=== PATIENT | female | born 1955 | race Caucasian/White ===

== ENCOUNTER 2022-08-23 17:34 | Emergency (ER) | payer MEDICARE ==
[~2022-08-23 17:34] MED LIST: Iopamidol-370 76% 500 ML 1 ML ONE
[2022-08-23] MEDS ORDERED: Ondansetron PF 4 MG/2 ML Vial ONE (18:51)
[2022-08-23] MEDS ORDERED: Fentanyl 100 MCG/2 ML VIAL ONE (18:51)
[2022-08-23 18:52] LABS: #Eosinphils 0.1 thou/uL (0.0-0.7); #Lymphocytes 0.8 thou/uL (1.20-3.40); #Monocytes 0.7 thou/uL (0.11-0.59); %Basophils 0.2 % (0.0-1.0); %Eosinophils 1.4 % (0.0-10.0); %Lymphocytes 8.7 % (21.0-51.0); %Monocytes 8.4 % (0.0-10.0); %Neutrophils 81.3 % (42.0-75.0); Hemoglobin 11.3 g/dL (12.0-16.0); Mean Corpuscular HGB CONC 31.9 g/dL (32.0-36.0); Mean Corpuscular Hemoglobin 30.2 pg (27.0-31.0); Mean Corpuscular Volume 94.7 fL (78.0-98.0); Mean Platelet Volume 7.5 fL (7.4-10.4); Platelet Count 387 thou/uL (130-400); RBC Distribution Width 12.1 % (11.5-14.5); Red Blood Cell (RBC) Count 3.73 mill/uL (4.20-5.40); White Blood Cell (WBC) Count 8.7 thou/uL (4.8-10.8)
[2022-08-23] MEDS ORDERED: Pantoprazole 40 MG VIAL ONE (18:54)
[2022-08-23 19:09] LABS: ALT (SGPT) 7 U/L (8-55); AST (SGOT) 12 U/L (5-34); Albumin 3.8 g/dL (3.4-4.8); Alkaline Phosphatase 68 U/L (40-110); Bilirubin, Direct 0.2 mg/dL (0.1-0.3); Bilirubin, Total 0.4 mg/dL (0.2-1.2)
[2022-08-23 20:47] LABS: Chloride 100 mmol/L (98-107); Potassium 3.8 mmol/L (3.5-5.1); Sodium 139 mmol/L (136-145)
[2022-08-23 20:48] LABS: Calcium 9.2 mg/dL (7.8-10.44); Glucose 119 mg/dL (80-115)
[2022-08-23 20:50] LABS: Carbon Dioxide 25 mmol/L (23-31)
[2022-08-23 20:52] LABS: BUN (Urea Nitrogen) 19 mg/dL (9.8-20.1); Calc. Creatinine Clearance 0 mL/min (70-130); Estimated GFR 96
[2022-08-23 20:58] LABS: Anion Gap 18 mmol/L (10-20)
[2022-08-23 22:01] LABS: Bilirubin Negative (Negative); Blood, Urine Negative (Negative); Clarity Turbid (Clear); Glucose, Urine (Dipstick) Normal (Negative); Ketone, Urine 10 mg/dL (Negative); Leukocyte Negative Leu/uL (Negative); Nitrite Negative (Negative); Protein, Urine (Dipstick) 20 mg/dL (Neg-Trace); Specific Gravity, Urine 1.023 (1.002-1.036); Urobilinogen Normal mg/dL (Less than 2)
== END 2022-08-23 23:20 | disposition home or self-care (01) ==
LOC: ERS 17:34
DX: K52.9 Noninfective gastroenteritis and colitis, unspecified (principal); Z87.891 Personal history of nicotine dependence; Z85.118 Personal history of other malignant neoplasm of bronchus and lung; Z85.819 Personal history of malignant neoplasm of unspecified site of lip, oral cavity, and pharynx
CPT/HCPCS: 36415; 74177; 80048; 80076; 81003; 83605; 83690; 85025; 93005; 96374; 96375; C9113; J2405; J3010

== ENCOUNTER 2022-08-25 11:25 | Outpatient (CLI) | payer MEDICARE | END 2022-08-25 11:26 | disposition home or self-care (01) | LOC: CT 11:25 | PROVIDERS: ATTEND Radiology Radiation Oncology | DX: C34.11 Malignant neoplasm of upper lobe, right bronchus or lung (principal); N63.10 Unspecified lump in the right breast, unspecified quadrant | CPT/HCPCS: 71260 ==

== ENCOUNTER 2022-10-02 11:28 | Inpatient (IN) | payer MEDICARE ==
[2022-10-02 12:52] LABS: #Lymphocytes 0.5 thou/uL (1.20-3.40); #Monocytes 0.7 thou/uL (0.11-0.59); #Neutrophils 6.7 thou/uL (1.40-6.50); %Basophils 0.4 % (0.0-1.0); %Eosinophils 0.6 % (0.0-10.0); %Lymphocytes 5.9 % (21.0-51.0); %Monocytes 8.6 % (0.0-10.0); %Neutrophils 84.5 % (42.0-75.0); Hemoglobin 4.9 g/dL (12.0-16.0); Mean Corpuscular HGB CONC 31.8 g/dL (32.0-36.0); Mean Corpuscular Volume 91.5 fl (78.0-98.0); Mean Platelet Volume 7.4 fL (7.4-10.4); Platelet Count 392 10x3/uL (130-400); RBC Distribution Width 13.2 % (11.5-14.5); Red Blood Cell (RBC) Count 1.69 mill/uL (4.20-5.40); White Blood Cell (WBC) Count 7.9 10x3/uL (4.8-10.8)
[2022-10-02 13:02] LABS: PTT 30.2 sec (22.9-36.1)
[2022-10-02 13:04] LABS: D-Dimer Test 0.62 *mcg/mL (0.27-0.43)
[2022-10-02 13:09] LABS: ALT (SGPT) 7 U/L (8-55); AST (SGOT) 9 U/L (5-34); Albumin 2.9 g/dL (3.4-4.8); Alkaline Phosphatase 41 U/L (40-110); Anion Gap 11 mmol/L (10-20); BUN (Urea Nitrogen) 48 mg/dL (9.8-20.1); Bilirubin, Total Less than 0.2 mg/dL (0.2-1.2); Calc. Creatinine Clearance 0 mL/min (70-130); Calcium 7.9 mg/dL (7.8-10.44); Carbon Dioxide 25 mmol/L (23-31); Chloride 111 mmol/L (98-107); Estimated GFR 97; Globulin 2.2 g/dL (2.4-3.5); Lipase 27 U/L (8-78); Protein, Total 5.1 g/dL (5.8-8.1); Sodium 143 mmol/L (136-145)
[2022-10-02 13:14] LABS: Glucose 58 mg/dL (80-115)
[2022-10-02 13:22] LABS: Iron 89 ug/dL (50-170); Iron Binding Capacity, Total 263 mcg/dL (265-497)
[2022-10-02] MEDS ORDERED: Iopamidol-370 76% 500 ML 1 ML ONE (13:52)
[2022-10-02] MEDS ORDERED: Pantoprazole 40 MG VIAL ONE (13:54)
[2022-10-02] MEDS ORDERED: Pantoprazole 80 MG in Sodium Chloride 0.9% 100 ML IVP SCH (16:45)
[2022-10-02] MEDS: Dextrose 5 %-0.45 % NaCl 1,000 ML IV SCH (18:09)
[2022-10-02] MEDS ORDERED: Sodium Chloride 0.9% 1,000 ML IV SCH (18:30)
[2022-10-02] MEDS ORDERED: Ondansetron PF 4 MG/2 ML Vial IVP PRN (18:30)
[2022-10-02] MEDS ORDERED: Acetaminophen 325 MG TAB PO PRN (18:30)
[2022-10-02] MEDS ORDERED: Ondansetron ODT 4 MG TAB SL PRN (18:30)
[2022-10-02] MEDS ORDERED: Dextrose 50% Abboject 50 ML SYRINGE SLOW IVP PRN (19:56)
[2022-10-02] MEDS ORDERED: Dextrose 5% in Water 1,000 ML IV PRN (19:56)
[2022-10-02 22:11] LABS: Bilirubin Negative (Negative); Blood, Urine Negative (Negative); Clarity Clear (Clear); Glucose, Urine (Dipstick) 30 mg/dL (Negative); Ketone, Urine Negative (Negative); Leukocyte Negative Leu/uL (Negative); Nitrite Negative (Negative); Protein, Urine (Dipstick) Negative (Neg-Trace); Specific Gravity, Urine 1.032 (1.002-1.036); Urobilinogen Normal mg/dL (Less than 2); pH, Urine 6.5 (5.0-9.0)
[2022-10-03] MEDS: Dextrose 5 %-0.45 % NaCl 1,000 ML IV SCH (03:01)
[2022-10-03 03:32] LABS: Hemoglobin 8.3 g/dL (12.0-16.0)
[2022-10-03 04:03] LABS: ALT (SGPT) 7 U/L (8-55); AST (SGOT) 13 U/L (5-34); Albumin 2.5 g/dL (3.4-4.8); Alkaline Phosphatase 43 U/L (40-110); Anion Gap 9 mmol/L (10-20); BUN (Urea Nitrogen) 21 mg/dL (9.8-20.1); Bilirubin, Total 1.3 mg/dL (0.2-1.2); Calc. Creatinine Clearance 64 mL/min (70-130); Calcium 7.6 mg/dL (7.8-10.44); Carbon Dioxide 25 mmol/L (23-31); Chloride 111 mmol/L (98-107); Estimated GFR 101; Glucose 121 mg/dL (80-115); Potassium 3.6 mmol/L (3.5-5.1); Protein, Total 4.5 g/dL (5.8-8.1); Sodium 141 mmol/L (136-145)
[2022-10-03 06:36] LABS: SARS-CoV-2 NAA Rapid Test Not Detected (NotDetected)
[2022-10-03] MEDS: Pantoprazole 80 MG, Admixture Fee 1 EACH in Sodium Chloride 0.9% 100 ML IVP SCH ×2 (08:22→17:01)
[2022-10-03 10:31] LABS: Hemoglobin 7.4 g/dL (12.0-16.0)
[2022-10-04] MEDS: Pantoprazole 80 MG, Admixture Fee 1 EACH in Sodium Chloride 0.9% 100 ML IVP SCH ×2 (02:30→14:23)
[2022-10-04 06:49] LABS: Hemoglobin 8.4 g/dL (12.0-16.0); Platelet Count 338 10x3/uL (130-400)
[2022-10-04 07:20] LABS: Anion Gap 8 mmol/L (10-20); BUN (Urea Nitrogen) 12 mg/dL (9.8-20.1); Calc. Creatinine Clearance 59 mL/min (70-130); Calcium 7.6 mg/dL (7.8-10.44); Carbon Dioxide 25 mmol/L (23-31); Chloride 108 mmol/L (98-107); Estimated GFR 101; Glucose 93 mg/dL (80-115); Potassium 3.8 mmol/L (3.5-5.1); Sodium 137 mmol/L (136-145)
[2022-10-05 07:17] LABS: Hemoglobin 7.9 g/dL (12.0-16.0); Mean Corpuscular HGB CONC 31.8 g/dL (32.0-36.0); Mean Corpuscular Hemoglobin 28.7 pg (27.0-31.0); Mean Corpuscular Volume 90.3 fl (78.0-98.0); Mean Platelet Volume 7.6 fL (7.4-10.4); Platelet Count 340 10x3/uL (130-400); RBC Distribution Width 22.6 % (11.5-14.5); Red Blood Cell (RBC) Count 2.75 mill/uL (4.20-5.40); White Blood Cell (WBC) Count 6.3 10x3/uL (4.8-10.8)
[2022-10-05 07:18] LABS: #Eosinphils 0.2 thou/uL (0.0-0.7); #Lymphocytes 0.6 thou/uL (1.20-3.40); #Monocytes 0.6 thou/uL (0.11-0.59); %Basophils 0.1 % (0.0-1.0); %Eosinophils 2.4 % (0.0-10.0); %Lymphocytes 9.2 % (21.0-51.0); %Monocytes 9.1 % (0.0-10.0); %Neutrophils 79.2 % (42.0-75.0)
[2022-10-05 07:27] LABS: Anion Gap 9 mmol/L (10-20); BUN (Urea Nitrogen) 10 mg/dL (9.8-20.1); Calc. Creatinine Clearance 54 mL/min (70-130); Calcium 7.8 mg/dL (7.8-10.44); Carbon Dioxide 28 mmol/L (23-31); Chloride 104 mmol/L (98-107); Estimated GFR 99; Glucose 97 mg/dL (80-115); Potassium 3.9 mmol/L (3.5-5.1); Sodium 137 mmol/L (136-145)
[2022-10-05 08:22] LABS: Anisocytosis MODERATE=16-30 cells (100X) (0-5/hpf); MDiff Complete? YES; Platelet Morphology Comment Appears Adequate; Polychromasia MODERATE = 3-4 cells (100X) (0-2/hpf)
[2022-10-05] MEDS ORDERED: FLU VACC QS2022-23(65YR UP)/PF 240 MCG/0.7 ML SYRINGE IM ONE (09:00)
[2022-10-06] MEDS: Pantoprazole 80 MG, Admixture Fee 1 EACH in Sodium Chloride 0.9% 100 ML IVP SCH (02:54)
[2022-10-06 06:53] LABS: #Eosinphils 0.1 thou/uL (0.0-0.7); #Lymphocytes 0.6 thou/uL (1.20-3.40); #Monocytes 0.7 thou/uL (0.11-0.59); #Neutrophils 3.7 thou/uL (1.40-6.50); %Basophils 0.2 % (0.0-1.0); %Eosinophils 1.8 % (0.0-10.0); %Lymphocytes 11.7 % (21.0-51.0); %Monocytes 12.9 % (0.0-10.0); %Neutrophils 73.3 % (42.0-75.0); Hemoglobin 7.7 g/dL (12.0-16.0); Mean Corpuscular HGB CONC 31.8 g/dL (32.0-36.0); Mean Corpuscular Hemoglobin 28.9 pg (27.0-31.0); Mean Corpuscular Volume 90.8 fl (78.0-98.0); Mean Platelet Volume 7.8 fL (7.4-10.4); Platelet Count 336 10x3/uL (130-400); RBC Distribution Width 21.9 % (11.5-14.5); Red Blood Cell (RBC) Count 2.66 mill/uL (4.20-5.40); White Blood Cell (WBC) Count 5.1 10x3/uL (4.8-10.8)
[2022-10-06 07:12] LABS: Anion Gap 8 mmol/L (10-20); BUN (Urea Nitrogen) 10 mg/dL (9.8-20.1); Calc. Creatinine Clearance 56 mL/min (70-130); Carbon Dioxide 29 mmol/L (23-31); Chloride 104 mmol/L (98-107); Estimated GFR 99; Glucose 93 mg/dL (80-115); Sodium 137 mmol/L (136-145)
[2022-10-07 06:26] LABS: #Eosinphils 0.1 thou/uL (0.0-0.7); #Lymphocytes 0.7 thou/uL (1.20-3.40); #Monocytes 0.7 thou/uL (0.11-0.59); #Neutrophils 3.9 thou/uL (1.40-6.50); %Basophils 0.4 % (0.0-1.0); %Eosinophils 2.1 % (0.0-10.0); %Lymphocytes 12.3 % (21.0-51.0); %Monocytes 12.6 % (0.0-10.0); %Neutrophils 72.6 % (42.0-75.0); Hemoglobin 9.7 g/dL (12.0-16.0); Mean Corpuscular HGB CONC 32.6 g/dL (32.0-36.0); Mean Corpuscular Hemoglobin 29.3 pg (27.0-31.0); Mean Corpuscular Volume 89.9 fl (78.0-98.0); Mean Platelet Volume 7.6 fL (7.4-10.4); Platelet Count 331 10x3/uL (130-400); RBC Distribution Width 19.5 % (11.5-14.5); Red Blood Cell (RBC) Count 3.29 mill/uL (4.20-5.40); White Blood Cell (WBC) Count 5.4 10x3/uL (4.8-10.8)
[2022-10-07 06:44] LABS: Anion Gap 10 mmol/L (10-20); BUN (Urea Nitrogen) 10 mg/dL (9.8-20.1); Calc. Creatinine Clearance 52 mL/min (70-130); Calcium 8.3 mg/dL (7.8-10.44); Carbon Dioxide 30 mmol/L (23-31); Chloride 102 mmol/L (98-107); Estimated GFR 99; Glucose 93 mg/dL (80-115); Sodium 138 mmol/L (136-145)
[2022-10-07] MEDS: Midodrine HCl 5 MG TAB PO SCH ×2 (17:16→22:11)
[2022-10-07] MEDS ORDERED: Acetaminophen 650 MG/20.3 ML UDCUP PER TUBE SCH (23:59)
[2022-10-08] MEDS: Pantoprazole 80 MG, Admixture Fee 1 EACH in Sodium Chloride 0.9% 100 ML IVP SCH ×2 (03:41→16:49)
[2022-10-08] MEDS: Sodium Chloride 0.9% 500 ML IV SCH ×2 (04:52→05:01)
[2022-10-08 07:02] LABS: #Eosinphils 0.1 thou/uL (0.0-0.7); #Lymphocytes 0.6 thou/uL (1.20-3.40); #Monocytes 0.9 thou/uL (0.11-0.59); #Neutrophils 5.4 thou/uL (1.40-6.50); %Basophils 0.5 % (0.0-1.0); %Eosinophils 2.1 % (0.0-10.0); %Lymphocytes 9.1 % (21.0-51.0); %Monocytes 12.2 % (0.0-10.0); %Neutrophils 76.1 % (42.0-75.0); Hemoglobin 9.4 g/dL (12.0-16.0); Mean Corpuscular HGB CONC 31.7 g/dL (32.0-36.0); Mean Corpuscular Hemoglobin 28.9 pg (27.0-31.0); Mean Corpuscular Volume 91.2 fl (78.0-98.0); Mean Platelet Volume 7.7 fL (7.4-10.4); Platelet Count 358 10x3/uL (130-400); RBC Distribution Width 19.5 % (11.5-14.5); Red Blood Cell (RBC) Count 3.27 mill/uL (4.20-5.40); White Blood Cell (WBC) Count 7.1 10x3/uL (4.8-10.8)
[2022-10-08 07:19] LABS: Anion Gap 11 mmol/L (10-20); BUN (Urea Nitrogen) 11 mg/dL (9.8-20.1); Calc. Creatinine Clearance 55 mL/min (70-130); Carbon Dioxide 27 mmol/L (23-31); Chloride 103 mmol/L (98-107); Estimated GFR 101; Glucose 93 mg/dL (80-115); Potassium 4.1 mmol/L (3.5-5.1); Sodium 137 mmol/L (136-145)
[2022-10-08] MEDS: Midodrine HCl 5 MG TAB PO SCH ×3 (08:42→22:18)
[2022-10-08 15:48] VITALS: BMI 13.8
[2022-10-09] MEDS: Pantoprazole 80 MG, Admixture Fee 1 EACH in Sodium Chloride 0.9% 100 ML IVP SCH (03:47)
[2022-10-09 07:50] LABS: #Eosinphils 0.1 thou/uL (0.0-0.7); #Lymphocytes 0.6 thou/uL (1.20-3.40); #Neutrophils 5.1 thou/uL (1.40-6.50); %Basophils 0.4 % (0.0-1.0); %Eosinophils 1.7 % (0.0-10.0); %Lymphocytes 8.9 % (21.0-51.0); Hemoglobin 9.3 g/dL (12.0-16.0); Mean Corpuscular HGB CONC 31.5 g/dL (32.0-36.0); Mean Corpuscular Hemoglobin 28.7 pg (27.0-31.0); Mean Corpuscular Volume 91.2 fl (78.0-98.0); Mean Platelet Volume 7.6 fL (7.4-10.4); Platelet Count 391 10x3/uL (130-400); RBC Distribution Width 18.8 % (11.5-14.5); Red Blood Cell (RBC) Count 3.25 mill/uL (4.20-5.40); White Blood Cell (WBC) Count 6.8 10x3/uL (4.8-10.8)
[2022-10-09 08:18] LABS: Anion Gap 13 mmol/L (10-20); BUN (Urea Nitrogen) 10 mg/dL (9.8-20.1); Calc. Creatinine Clearance 52 mL/min (70-130); Calcium 8.2 mg/dL (7.8-10.44); Carbon Dioxide 24 mmol/L (23-31); Chloride 103 mmol/L (98-107); Estimated GFR 99; Glucose 88 mg/dL (80-115); Potassium 4.7 mmol/L (3.5-5.1); Sodium 135 mmol/L (136-145)
[2022-10-09 08:45] VITALS: TEMP 97.5
[2022-10-09] MEDS: Midodrine HCl 5 MG TAB PO SCH ×2 (09:22→14:57)
[2022-10-09 15:17] VITALS: BP 97/56
== END 2022-10-09 15:03 | DRG 378 ==
LOC: ERS 11:28 → CCU 15:07 → T4-A 10-03 16:10
PROVIDERS: ADMIT Hospitalist; ATTEND Hospitalist
PROC: 30233N1 Transfusion of Nonautologous Red Blood Cells into Peripheral Vein, Percutaneous Approach (ICD-10-PCS; principal; 2022-10-02)
DX: K92.1 Melena (principal); Z66 Do not resuscitate; Z20.822 Contact with and (suspected) exposure to COVID-19; D62 Acute posthemorrhagic anemia; C78.01 Secondary malignant neoplasm of right lung; S82.092A Other fracture of left patella, initial encounter for closed fracture; C10.9 Malignant neoplasm of oropharynx, unspecified; R13.12 Dysphagia, oropharyngeal phase; Z53.20 Procedure and treatment not carried out because of patient's decision for unspecified reasons; W18.30XA Fall on same level, unspecified, initial encounter; E16.2 Hypoglycemia, unspecified; I95.9 Hypotension, unspecified; Z28.21 Immunization not carried out because of patient refusal; Z90.49 Acquired absence of other specified parts of digestive tract; Z93.4 Other artificial openings of gastrointestinal tract status; Z82.49 Family history of ischemic heart disease and other diseases of the circulatory system; Z88.5 Allergy status to narcotic agent; Z88.0 Allergy status to penicillin
CPT/HCPCS: 36415; 36416; 36430; 70450; 71275; 80048; 80053; 81003; 82728; 83540; 83550; 83605; 83690; 83735; 84443; 84484; 85014; 85018; 85025; 85049; 85379; 85610; 85730; 86850; 86900; 86901; 87040; 93005; 94760; 96374; 96375; C9113; J3490; J7030; J7042; P9016; Q9967; U0002

== ENCOUNTER 2022-11-15 09:45 | Outpatient (CLI) | payer MEDICARE | END 2022-11-15 09:46 | disposition home or self-care (01) | LOC: BICMAMMO 09:45 | PROVIDERS: ATTEND Radiology Radiation Oncology | DX: N63.0 Unspecified lump in unspecified breast (principal); R92.8 Other abnormal and inconclusive findings on diagnostic imaging of breast | CPT/HCPCS: 76642 ×2; 77066; G0279 ==

== ENCOUNTER 2022-11-21 08:57 | Emergency (ER) | payer MEDICARE ==
[2022-11-21] MEDS ORDERED: GASTROGRAFIN 30 ML BOT ONE (09:42)
== END 2022-11-21 10:52 | disposition home or self-care (01) ==
LOC: ERS 08:57
DX: Z00.00 Encounter for general adult medical examination without abnormal findings (principal)
CPT/HCPCS: 74018; Q9963

== ENCOUNTER 2022-11-22 18:18 | Emergency (ER) | payer MEDICARE ==
[2022-11-23 00:42] LABS: #Eosinphils 0.1 thou/uL (0.0-0.7); #Lymphocytes 0.9 thou/uL (1.20-3.40); #Monocytes 0.6 thou/uL (0.11-0.59); #Neutrophils 6.4 thou/uL (1.40-6.50); %Basophils 0.1 % (0.0-1.0); %Lymphocytes 11.7 % (21.0-51.0); %Monocytes 7.6 % (0.0-10.0); %Neutrophils 79.7 % (42.0-75.0); Hemoglobin 13.1 g/dL (12.0-16.0); Mean Corpuscular HGB CONC 32.8 g/dL (32.0-36.0); Mean Corpuscular Hemoglobin 29.1 pg (27.0-31.0); Mean Corpuscular Volume 88.8 fl (78.0-98.0); Mean Platelet Volume 7.4 fL (7.4-10.4); Platelet Count 402 10x3/uL (130-400); Red Blood Cell (RBC) Count 4.48 mill/uL (4.20-5.40); White Blood Cell (WBC) Count 8.1 10x3/uL (4.8-10.8)
[2022-11-23] MEDS ORDERED: Lidocaine 1% PF 5 ML VIAL ONE (00:59)
[2022-11-23 01:07] LABS: ALT (SGPT) 22 U/L (8-55); AST (SGOT) 20 U/L (5-34); Albumin 4.2 g/dL (3.4-4.8); Alkaline Phosphatase 94 U/L (40-110); Anion Gap 14 mmol/L (10-20); BUN (Urea Nitrogen) 25 mg/dL (9.8-20.1); Bilirubin, Total 0.4 mg/dL (0.2-1.2); Calc. Creatinine Clearance 0 mL/min (70-130); Carbon Dioxide 29 mmol/L (23-31); Chloride 102 mmol/L (98-107); Estimated GFR 96; Glucose 123 mg/dL (80-115); Lipase 30 U/L (8-78); Potassium 3.9 mmol/L (3.5-5.1); Protein, Total 8.2 g/dL (5.8-8.1); Sodium 141 mmol/L (136-145)
[2022-11-23] MEDS ORDERED: GASTROGRAFIN 30 ML BOT ONE (09:20)
== END 2022-11-23 01:44 | disposition home or self-care (01) ==
LOC: ERS 18:18
DX: K94.23 Gastrostomy malfunction (principal); Z87.891 Personal history of nicotine dependence
CPT/HCPCS: 74018; 80053; 83605; 83690; 85025; Q9963

== ENCOUNTER → 2022-11-28 | Day surgery (SDC) | payer MEDICARE | END | disposition home or self-care (01) | LOC: BICULT 12:31 | PROVIDERS: ATTEND Radiology Radiation Oncology | PROC: 0H9V3ZX Drainage of Bilateral Breast, Percutaneous Approach, Diagnostic (ICD-10-PCS; principal; 2022-11-28) | DX: C50.412 Malignant neoplasm of upper-outer quadrant of left female breast (principal); D24.1 Benign neoplasm of right breast; Z17.0 Estrogen receptor positive status [ER+]; Z88.0 Allergy status to penicillin; Z88.5 Allergy status to narcotic agent | CPT/HCPCS: 19083; 19084; 88305; 88341; 88342; 88361 ==

== ENCOUNTER 2022-12-12 11:05 | Emergency (ER) | payer MEDICARE ==
[2022-12-12] MEDS ORDERED: GASTROGRAFIN 30 ML BOT ONE (12:04)
== END 2022-12-12 14:21 | disposition home or self-care (01) ==
LOC: ERS 11:05
DX: K94.23 Gastrostomy malfunction (principal); Z87.891 Personal history of nicotine dependence
CPT/HCPCS: 74018; Q9963

== ENCOUNTER 2022-12-20 09:19 | Outpatient (CLI) | payer MEDICARE ==
[2022-12-20 10:19] LABS: #Eosinphils 0.2 10x3/uL (0.0-0.5); #Monocytes 0.6 10x3/uL (0.0-1.1); #Neutrophils 5.7 10x3/uL (1.5-8.4); %Basophils 0.6 % (0.0-2.0); %Eosinophils 2.1 % (0.0-6.0); %Lymphocytes 10.3 % (18.0-47.0); %Monocytes 8.1 % (0.0-10.0); %Neutrophils 78.6 % (40.0-75.0); Anion Gap 14 mmol/L (10-20); BUN (Urea Nitrogen) 21 mg/dL (9.8-20.1); Calc. Creatinine Clearance 0 mL/min (70-130); Calcium 9.2 mg/dL (7.8-10.44); Carbon Dioxide 30 mmol/L (23-31); Chloride 102 mmol/L (98-107); Estimated GFR 96; Glucose 93 mg/dL (80-115); Hemoglobin 11.2 g/dL (12.0-15.5); Mean Corpuscular HGB CONC 32.3 g/dL (32.0-36.0); Mean Corpuscular Hemoglobin 28.8 pg (27.0-33.0); Mean Corpuscular Volume 89.2 fl (81.6-98.3); Mean Platelet Volume 9.4 fl (7.4-10.4); Platelet Count 406 10x3/uL (150-450); Potassium 4.1 mmol/L (3.5-5.1); Red Blood Cell (RBC) Count 3.89 10x6/uL (3.90-5.03); Sodium 142 mmol/L (136-145); White Blood Cell (WBC) Count 7.2 10x3/uL (3.5-10.5)
== END 2022-12-20 09:20 | disposition home or self-care (01) ==
LOC: LABBT 09:19
PROVIDERS: ATTEND Specialist
DX: Z01.812 Encounter for preprocedural laboratory examination (principal); D05.12 Intraductal carcinoma in situ of left breast
CPT/HCPCS: 80048; 85025

== ENCOUNTER 2023-02-01 08:59 | Outpatient (CLI) | payer MEDICARE | END 2023-02-01 09:00 | disposition home or self-care (01) | LOC: LABBT 08:59 | PROVIDERS: ATTEND Specialist | DX: Z01.818 Encounter for other preprocedural examination (principal); C50.912 Malignant neoplasm of unspecified site of left female breast; C76.0 Malignant neoplasm of head, face and neck | CPT/HCPCS: 71046; 93005; 93010 ==

== ENCOUNTER 2023-02-02 11:23 | Day surgery (SDC) | payer MEDICARE ==
[2023-01-31 16:15] VITALS: BMI 15.8
[2023-02-02] MEDS ORDERED: Ketorolac Tromethamine 30 MG/ML VIAL ONE (12:21)
[2023-02-02] MEDS ORDERED: Acetaminophen 500 MG TAB ONE (12:21)
[2023-02-02] MEDS ORDERED: Propofol 500 MG/50 ML VIAL ONE (12:31)
[2023-02-02] MEDS ORDERED: FENTANYL 50 MCG/ML 1 ML VIAL ONE (14:38)
[2023-02-02] MEDS ORDERED: Midazolam HCl 2 mg/2 ml Vial ONE (14:38)
[2023-02-02] MEDS ORDERED: PROPOFOL 60 ML ONE (14:38)
[2023-02-02] MEDS ORDERED: Bupivacaine/Epinephrine 0.25% 30 ML VIAL ONE (14:45)
[2023-02-02] MEDS ORDERED: Lidocaine 2% PF 5 ML VIAL ONE (14:45)
[2023-02-02] MEDS ORDERED: Famotidine/PF 20 mg/2ml Vial ONE (14:52)
[2023-02-02] MEDS ORDERED: CEFAZOLIN 2 GM VIAL ONE (14:54)
[2023-02-02] MEDS ORDERED: Sodium Chloride 0.9% 100 ML ONE (14:54)
[2023-02-02] MEDS ORDERED: GLYCOPYRROLATE/PF 0.2 MG/ML VIAL ONE (14:59)
[2023-02-02] MEDS ORDERED: Ondansetron PF 4 MG/2 ML Vial ONE (14:59)
== END 2023-02-02 17:09 | disposition home or self-care (01) ==
LOC: SDC 11:23
PROVIDERS: ATTEND Specialist
PROC: 0JH60WZ Insertion of Totally Implantable Vascular Access Device into Chest Subcutaneous Tissue and Fascia, Open Approach (ICD-10-PCS; principal; 2023-02-02)
PROC: 02HV33Z Insertion of Infusion Device into Superior Vena Cava, Percutaneous Approach (ICD-10-PCS; 2023-02-02)
PROC: B518ZZA Fluoroscopy of Superior Vena Cava, Guidance (ICD-10-PCS; 2023-02-02)
DX: C76.0 Malignant neoplasm of head, face and neck (principal); C50.412 Malignant neoplasm of upper-outer quadrant of left female breast; Z87.891 Personal history of nicotine dependence; Z17.0 Estrogen receptor positive status [ER+]; Z79.52 Long term (current) use of systemic steroids; Z79.899 Other long term (current) drug therapy; Z88.0 Allergy status to penicillin; Z88.5 Allergy status to narcotic agent; Z93.1 Gastrostomy status
CPT/HCPCS: 36561; 71045; 82962; J3010; 36416; C1788; J1642; J1885; J2001; J2250; J2405; J2704; J3490; S0028

== ENCOUNTER 2023-04-20 08:45 | Outpatient (CLI) | payer MEDICARE | END 2023-04-20 08:46 | disposition home or self-care (01) | LOC: PET 08:45 | PROVIDERS: ATTEND Internal Medicine Hematology & Oncology | DX: C04.1 Malignant neoplasm of lateral floor of mouth (principal); C34.11 Malignant neoplasm of upper lobe, right bronchus or lung | CPT/HCPCS: 78815; A9552 ==

== ENCOUNTER 2023-05-22 17:57 | Inpatient (IN) | payer MEDICARE ==
[~2023-05-22 17:57] MED LIST changes: -Iopamidol-370 76% 500 ML 1 ML ONE; +Iopamidol-370 76% 500 ML MDV (1 ML CHARGE) ONE
[2023-05-22 18:47] LABS: Hemoglobin 9.2 g/dL (12.0-16.0); Mean Corpuscular HGB CONC 30.3 g/dL (32.0-36.0); Mean Corpuscular Hemoglobin 26.1 pg (27.0-31.0); Mean Corpuscular Volume 86.1 fl (78.0-98.0); Mean Platelet Volume 9.7 fL (7.4-10.4); Platelet Count 451 10x3/uL (130-400); RBC Distribution Width 18.4 % (11.5-14.5); Red Blood Cell (RBC) Count 3.53 mill/uL (4.20-5.40); White Blood Cell (WBC) Count 4.9 10x3/uL (4.8-10.8)
[2023-05-22 18:54] LABS: Delete Auto Diff?? YES; Manual Diff?? YES
[2023-05-22 18:57] LABS: #Neutrophils 4.2 thou/uL (1.40-6.50); %Basophils 0.6 % (0.0-1.0); %Eosinophils 0.4 % (0.0-10.0); %Monocytes 0.6 % (0.0-10.0); %Neutrophils 85.6 % (42.0-75.0)
[2023-05-22 19:13] LABS: ALT (SGPT) 11 U/L (8-55); AST (SGOT) 14 U/L (5-34); Albumin 3.6 g/dL (3.4-4.8); Alkaline Phosphatase 59 U/L (40-110); Anion Gap 15 mmol/L (10-20); BUN (Urea Nitrogen) 26 mg/dL (9.8-20.1); Bilirubin, Total 0.2 mg/dL (0.2-1.2); Calc. Creatinine Clearance 0 mL/min (70-130); Calcium 8.8 mg/dL (7.8-10.44); Carbon Dioxide 28 mmol/L (23-31); Chloride 102 mmol/L (98-107); Estimated GFR 100; Globulin 2.4 g/dL (2.4-3.5); Glucose 108 mg/dL (80-115); Potassium 4.1 mmol/L (3.5-5.1); Sodium 141 mmol/L (136-145)
[2023-05-22 19:47] LABS: Anisocytosis SLIGHT = 6-15 cells HPF (0-5); CellaVision Operator ID LAB.KB; Hypochromia SLIGHT = 6-15 cells HPF (0-5); Polychromasia SLIGHT = 2-3 cells HPF (0-2)
[2023-05-22 19:59] LABS: Lymphocytes 13 % (21-51); Neutrophil 86 % (42-75); Platelet Adequacy Comment Platelets Increased; Total Cell Count 100
[2023-05-22] MEDS ORDERED: Vancomycin 1 GM/200 ML (FROZEN) BAG ONE (20:37)
[2023-05-22] MEDS ORDERED: Clindamycin/D5W 600 mg/50 ml Premix Bag ONE (20:40)
[2023-05-22] MEDS ORDERED: Hydrocodone-Acetamin 15 ML UDCUP ONE (21:54)
[2023-05-22] MEDS ORDERED: Ondansetron PF 4 MG/2 ML Vial IVP PRN (22:31)
[2023-05-23] MEDS: Sodium Chloride 0.9% 1,000 ML IV SCH ×2 (00:12→09:58)
[2023-05-23] MEDS: Hydrocodone-Acetamin 15 ML UDCUP PER TUBE PRN ×4 (03:46→22:00)
[2023-05-23] MEDS: Cefepime 1 GM in Sodium Chloride 0.9% 100 ML IVPB SCH ×2 (05:26→17:06)
[2023-05-23 05:40] LABS: #Neutrophils 2.5 thou/uL (1.40-6.50); %Basophils 1.4 % (0.0-1.0); %Eosinophils 0.3 % (0.0-10.0); %Lymphocytes 10.6 % (21.0-51.0); %Monocytes 1.4 % (0.0-10.0); %Neutrophils 83.9 % (42.0-75.0); Hemoglobin 8.2 g/dL (12.0-16.0); Mean Corpuscular HGB CONC 29.8 g/dL (32.0-36.0); Mean Corpuscular Hemoglobin 25.8 pg (27.0-31.0); Mean Corpuscular Volume 86.5 fl (78.0-98.0); Mean Platelet Volume 9.5 fL (7.4-10.4); Platelet Count 414 10x3/uL (130-400); RBC Distribution Width 18.3 % (11.5-14.5); Red Blood Cell (RBC) Count 3.18 mill/uL (4.20-5.40); White Blood Cell (WBC) Count 2.9 10x3/uL (4.8-10.8)
[2023-05-23 06:01] LABS: Anion Gap 11 mmol/L (10-20); BUN (Urea Nitrogen) 16 mg/dL (9.8-20.1); Calc. Creatinine Clearance 67 mL/min (70-130); Calcium 8.3 mg/dL (7.8-10.44); Carbon Dioxide 29 mmol/L (23-31); Chloride 101 mmol/L (98-107); Estimated GFR 102; Glucose 94 mg/dL (80-115); Sodium 137 mmol/L (136-145)
[2023-05-23] MEDS ORDERED: Famotidine/PF 20 mg/2ml Vial SLOW IVP SCH (09:00)
[2023-05-23 09:43] VITALS: BMI 15.7
[2023-05-23] MEDS: Vancomycin HCl 500 MG in Sodium Chloride 0.9% 100 ML IVPB SCH ×2 (09:54→20:42)
[2023-05-24] MEDS: Sodium Chloride 0.9% 1,000 ML IV SCH ×2 (02:08→15:06)
[2023-05-24] MEDS: Hydrocodone-Acetamin 15 ML UDCUP PER TUBE PRN ×3 (03:33→20:20)
[2023-05-24] MEDS: Cefepime 1 GM in Sodium Chloride 0.9% 100 ML IVPB SCH ×2 (06:25→16:57)
[2023-05-24 07:51] LABS: Hemoglobin 7.8 g/dL (12.0-16.0); Mean Corpuscular HGB CONC 30.1 g/dL (32.0-36.0); Mean Corpuscular Hemoglobin 25.7 pg (27.0-31.0); Mean Corpuscular Volume 85.2 fl (78.0-98.0); Mean Platelet Volume 9.4 fL (7.4-10.4); Platelet Count 387 10x3/uL (130-400); RBC Distribution Width 18.2 % (11.5-14.5); Red Blood Cell (RBC) Count 3.04 mill/uL (4.20-5.40); White Blood Cell (WBC) Count 0.9 10x3/uL (4.8-10.8)
[2023-05-24 07:54] LABS: Delete Auto Diff?? YES; Manual Diff?? YES
[2023-05-24 08:13] LABS: ALT (SGPT) 7 U/L (8-55); AST (SGOT) 9 U/L (5-34); Alkaline Phosphatase 51 U/L (40-110); Anion Gap 9 mmol/L (10-20); BUN (Urea Nitrogen) 8 mg/dL (9.8-20.1); Bilirubin, Total 0.4 mg/dL (0.2-1.2); Calc. Creatinine Clearance 68 mL/min (70-130); Calcium 7.9 mg/dL (7.8-10.44); Carbon Dioxide 28 mmol/L (23-31); Chloride 102 mmol/L (98-107); Estimated GFR 102; Globulin 2.1 g/dL (2.4-3.5); Glucose 96 mg/dL (80-115); Potassium 4.1 mmol/L (3.5-5.1); Protein, Total 5.1 g/dL (5.8-8.1); Sodium 135 mmol/L (136-145)
[2023-05-24] MEDS ORDERED: [UNRECOGNIZED DRUG - OTHER] PER TUBE SCH (09:00)
[2023-05-24 09:08] LABS: Band 11 % (5-11); CellaVision Operator ID LAB.GE; Eosinophils 1 % (0-10); Hypochromia SLIGHT = 6-15 cells HPF (0-5); Large Platelets 11.3 % (0-5); Lymphocytes 24 % (21-51); Monocytes 4 % (0-10); Neutrophil 56 % (42-75); Platelet Adequacy Comment Platelets Normal; Polychromasia SLIGHT = 2-3 cells HPF (0-2); Reactive Lymphocytes 4 % (0-10); Smudge Cells 4.7 %; Total Cell Count 106
[2023-05-24] MEDS: Lansoprazole 15 MG/5 ML (BATCHED)UDCUP PER TUBE SCH (09:16)
[2023-05-24 09:20] LABS: Vancomycin, Trough 6.8 ug/mL
[2023-05-24] MEDS: Vancomycin HCl 500 MG in Sodium Chloride 0.9% 100 ML IVPB SCH (10:11)
[2023-05-24] MEDS: Vancomycin HCl 750 MG in Sodium Chloride 0.9% 250 ML 250 ML IVPB SCH ×2 (10:19→22:23)
[2023-05-24] MEDS: metroNIDAZOLE 500 MG in Premix Bag 1 BAG IVPB SCH ×2 (15:05→23:40)
[2023-05-24] MEDS ORDERED: TBO-Filgrastim 300 MCG/0.5 ML VIAL SC SCH (15:30)
[2023-05-25] MEDS: Hydrocodone-Acetamin 15 ML UDCUP PER TUBE PRN ×3 (01:45→13:24)
[2023-05-25] MEDS: Cefepime 1 GM in Sodium Chloride 0.9% 100 ML IVPB SCH ×2 (05:48→18:13)
[2023-05-25 06:07] LABS: Hemoglobin 7.3 g/dL (12.0-16.0); Mean Corpuscular HGB CONC 30.7 g/dL (32.0-36.0); Mean Corpuscular Hemoglobin 25.9 pg (27.0-31.0); Mean Corpuscular Volume 84.4 fl (78.0-98.0); Mean Platelet Volume 9.9 fL (7.4-10.4); Platelet Count 382 10x3/uL (130-400); RBC Distribution Width 18.1 % (11.5-14.5); Red Blood Cell (RBC) Count 2.82 mill/uL (4.20-5.40); White Blood Cell (WBC) Count 0.6 10x3/uL (4.8-10.8)
[2023-05-25 06:21] LABS: Delete Auto Diff?? YES; Manual Diff?? YES
[2023-05-25] MEDS: metroNIDAZOLE 500 MG in Premix Bag 1 BAG IVPB SCH ×3 (06:40→21:10)
[2023-05-25] MEDS: Sodium Chloride 0.9% 1,000 ML IV SCH ×2 (06:42→16:35)
[2023-05-25 09:30] LABS: Band 5 % (5-11); Lymphocytes 60 % (21-51); Monocytes 10 % (0-10); Neutrophil 25 % (42-75); Nucleated RBC (Manual Ct) 1 % (0); Platelet Adequacy Comment Platelets Normal; Polychromasia SLIGHT = 2-3 cells (100X) (0-2/hpf)
[2023-05-25] MEDS: TBO-Filgrastim 300 MCG/0.5 ML VIAL SC SCH (09:34)
[2023-05-25] MEDS: Lansoprazole 15 MG/5 ML (BATCHED)UDCUP PER TUBE SCH (09:34)
[2023-05-25] MEDS: Vancomycin HCl 750 MG in Sodium Chloride 0.9% 250 ML 250 ML IVPB SCH (09:38)
[2023-05-25] MEDS ORDERED: Hydrocodone-Acetamin 15 ML UDCUP PO PRN ×2 (16:25)
[2023-05-25] MEDS ORDERED: Hydrocodone-Acetamin 15 ML UDCUP PO SCH (16:30)
[2023-05-25] MEDS ORDERED: Hydrocodone-Acetamin 15 ML UDCUP PER TUBE PRN (16:45)
[2023-05-25] MEDS ORDERED: Hydrocodone-Acetamin 15 ML UDCUP PER TUBE SCH (16:45)
[2023-05-26] LABS: Vancomycin, Trough 11.3 ug/mL
[2023-05-26] MEDS: Vancomycin HCl 750 MG in Sodium Chloride 0.9% 250 ML 250 ML IVPB SCH ×3 (00:32→13:25)
[2023-05-26] MEDS: metroNIDAZOLE 500 MG in Premix Bag 1 BAG IVPB SCH (04:46)
[2023-05-26] MEDS: Sodium Chloride 0.9% 1,000 ML IV SCH (04:46)
[2023-05-26] MEDS: Cefepime 1 GM in Sodium Chloride 0.9% 100 ML IVPB SCH (04:46)
[2023-05-26 05:00] LABS: Hemoglobin 7.1 g/dL (12.0-16.0); Manual Diff?? YES; Mean Corpuscular HGB CONC 31.3 g/dL (32.0-36.0); Mean Corpuscular Hemoglobin 26.4 pg (27.0-31.0); Mean Corpuscular Volume 84.4 fl (78.0-98.0); Mean Platelet Volume 9.7 fL (7.4-10.4); Platelet Count 394 10x3/uL (130-400); RBC Distribution Width 18.3 % (11.5-14.5); Red Blood Cell (RBC) Count 2.69 mill/uL (4.20-5.40); White Blood Cell (WBC) Count 0.9 10x3/uL (4.8-10.8)
[2023-05-26 05:03] LABS: Delete Auto Diff?? YES
[2023-05-26 05:32] LABS: Band 7 % (5-11); CellaVision Operator ID LAB.CLH1; Hypochromia MODERATE=16-30 cells HPF (0-5); Large Platelets 35.5 % (0-5); Lymphocytes 48 % (21-51); Monocytes 42 % (0-10); Platelet Adequacy Comment Platelets Normal; Polychromasia MODERATE = 3-4 cells HPF (0-2)
[2023-05-26] MEDS: Hydrocodone-Acetamin 15 ML UDCUP PER TUBE PRN ×4 (07:34→22:41)
[2023-05-26] MEDS: TBO-Filgrastim 300 MCG/0.5 ML VIAL SC SCH (08:05)
[2023-05-26] MEDS: Lansoprazole 15 MG/5 ML (BATCHED)UDCUP PER TUBE SCH (08:06)
[2023-05-26] MEDS ORDERED: Loperamide HCl 2 MG CAP PO PRN (14:58)
[2023-05-26] MEDS ORDERED: Loperamide HCl 1 MG/7.5 ML UDCUP PO PRN (15:02)
[2023-05-27] MEDS: Hydrocodone-Acetamin 15 ML UDCUP PER TUBE PRN ×2 (05:06→10:44)
[2023-05-27 05:43] LABS: #Basophils 0.1 thou/uL (0.0-0.2); #Monocytes 2.7 thou/uL (0.11-0.59); #Neutrophils 3.4 thou/uL (1.40-6.50); %Basophils 1.3 % (0.0-1.0); %Eosinophils 0.3 % (0.0-10.0); %Lymphocytes 10.7 % (21.0-51.0); %Monocytes 38.2 % (0.0-10.0); %Neutrophils 47.3 % (42.0-75.0); Mean Corpuscular HGB CONC 31.3 g/dL (32.0-36.0); Mean Corpuscular Hemoglobin 26.3 pg (27.0-31.0); Mean Corpuscular Volume 83.8 fl (78.0-98.0); Mean Platelet Volume 9.5 fL (7.4-10.4); Platelet Count 543 10x3/uL (130-400); RBC Distribution Width 18.1 % (11.5-14.5); Red Blood Cell (RBC) Count 3.96 mill/uL (4.20-5.40); White Blood Cell (WBC) Count 7.2 10x3/uL (4.8-10.8)
[2023-05-27 05:57] LABS: Hemoglobin 10.4 g/dL (12.0-16.0)
[2023-05-27 05:58] LABS: Manual Diff?? NO
[2023-05-27 08:27] VITALS: BP 105/57; TEMP 97.7
[2023-05-27] MEDS: Lansoprazole 15 MG/5 ML (BATCHED)UDCUP PER TUBE SCH (10:46)
[2023-05-27] MEDS: TBO-Filgrastim 300 MCG/0.5 ML VIAL SC SCH (11:52)
== END 2023-05-27 12:45 | disposition home or self-care (01) | DRG 147 ==
LOC: ERS 17:57 → SURG B 21:22 → OBSVTOIN 05-23 11:45
PROVIDERS: ADMIT Hospitalist; ATTEND Internal Medicine
PROC: 30233N1 Transfusion of Nonautologous Red Blood Cells into Peripheral Vein, Percutaneous Approach (ICD-10-PCS; principal; 2023-05-26)
DX: C10.9 Malignant neoplasm of oropharynx, unspecified (principal); C34.91 Malignant neoplasm of unspecified part of right bronchus or lung; E44.0 Moderate protein-calorie malnutrition; R13.12 Dysphagia, oropharyngeal phase; C50.912 Malignant neoplasm of unspecified site of left female breast; D70.1 Agranulocytosis secondary to cancer chemotherapy; T45.1X5A Adverse effect of antineoplastic and immunosuppressive drugs, initial encounter; K13.79 Other lesions of oral mucosa; D64.9 Anemia, unspecified; Z93.1 Gastrostomy status; Z98.890 Other specified postprocedural states; Z88.0 Allergy status to penicillin; Z88.5 Allergy status to narcotic agent; Z88.6 Allergy status to analgesic agent; Z79.899 Other long term (current) drug therapy; Z80.0 Family history of malignant neoplasm of digestive organs; Z87.891 Personal history of nicotine dependence
CPT/HCPCS: 36430; 70491; 71045; 80048; 80053; 80202; 85025; 85060; 86850; 86900; 86901; 87324; 87449; 87493; 96365; 96367; 96368; 96375; 96376; G0378; J0692; J1447; J1642; J3370; J3370-JW; J3490; J7050; P9016; Q9967; S0028

== ENCOUNTER 2023-09-05 09:42 | Inpatient (IN) | payer MEDICARE ==
[2023-09-05 12:02] LABS: #Eosinphils 0.1 thou/uL (0.0-0.7); #Monocytes 0.3 thou/uL (0.11-0.59); %Basophils 0.2 % (0.0-1.0); %Eosinophils 0.8 % (0.0-10.0); %Neutrophils 91.7 % (42.0-75.0); Hematocrit 60.3 % (36.0-47.0); Hemoglobin 18.8 g/dL (12.0-16.0); Mean Corpuscular HGB CONC 31.2 g/dL (32.0-36.0); Mean Corpuscular Hemoglobin 25.8 pg (27.0-31.0); Mean Corpuscular Volume 82.6 fl (78.0-98.0); Mean Platelet Volume 9.5 fL (7.4-10.4); Platelet Count 185 10x3/uL (130-400); RBC Distribution Width 17.3 % (11.5-14.5); White Blood Cell (WBC) Count 8.7 10x3/uL (4.8-10.8)
[2023-09-05 12:07] LABS: INR-International Normal Ratio 1.1; Prothrombin Time 14.6 sec (12.0-14.7)
[2023-09-05 12:10] LABS: Calcium 9.2 mg/dL (7.8-10.44); Chloride 99 mmol/L (98-107); Potassium 3.1 mmol/L (3.5-5.1); Sodium 139 mmol/L (136-145)
[2023-09-05 12:11] LABS: Globulin 2.9 g/dL (2.4-3.5); Glucose 108 mg/dL (80-115); Protein, Total 6.9 g/dL (5.8-8.1)
[2023-09-05 12:12] LABS: Anion Gap 16 mmol/L (10-20); Carbon Dioxide 27 mmol/L (23-31)
[2023-09-05 12:13] LABS: Bilirubin, Total 0.3 mg/dL (0.2-1.2)
[2023-09-05 12:14] LABS: Alkaline Phosphatase 82 U/L (40-110); Calc. Creatinine Clearance 0 mL/min (70-130); Estimated GFR 100
[2023-09-05 12:15] LABS: BUN (Urea Nitrogen) 9 mg/dL (9.8-20.1)
[2023-09-05 12:16] LABS: AST (SGOT) 14 U/L (5-34)
[2023-09-05 12:17] LABS: ALT (SGPT) 7 U/L (8-55)
[2023-09-05] MEDS ORDERED: Potassium Chloride 20 MEQ/100 ML PREMIX BAG ONE (12:59)
[2023-09-05] MEDS ORDERED: NS 0.9% w/ 20 MEQ KCL 1,000 ML IV SCH (13:15)
[2023-09-05] MEDS ORDERED: Acetaminophen 325 MG TAB PO PRN (14:45)
[2023-09-05] MEDS ORDERED: Guaifenesin DM 100-10/5 ML UDCUP PO PRN (14:45)
[2023-09-05] MEDS ORDERED: Senokot S 8.6-50 MG TAB PO PRN (14:45)
[2023-09-05] MEDS ORDERED: FLU VACC QS2023(65UP)/MF59C/PF 60 MCG/0.5 ML SYRINGE IM ONE (16:15)
[2023-09-05] MEDS: Ondansetron PF 4 MG/2 ML Vial IVP PRN (16:18)
[2023-09-05] MEDS: NS 0.9% w/ 20 MEQ KCL 1,000 ML IV SCH ×2 (16:21→21:42)
[2023-09-05] MEDS: Hydrocodone-Acetamin 15 ML UDCUP PO PRN (21:05)
[2023-09-05] MEDS: Famotidine/PF 20 mg/2ml Vial SLOW IVP SCH (21:06)
[2023-09-06] MEDS: Hydrocodone-Acetamin 15 ML UDCUP PO PRN ×3 (03:03→21:54)
[2023-09-06 06:52] LABS: #Basophils 0.1 thou/uL (0.0-0.2); #Eosinphils 0.5 thou/uL (0.0-0.7); #Monocytes 0.7 thou/uL (0.11-0.59); #Neutrophils 7.6 thou/uL (1.40-6.50); %Basophils 0.7 % (0.0-1.0); %Eosinophils 5.1 % (0.0-10.0); %Lymphocytes 8.6 % (21.0-51.0); %Monocytes 7.4 % (0.0-10.0); %Neutrophils 77.8 % (42.0-75.0); Mean Corpuscular HGB CONC 30.3 g/dL (32.0-36.0); Mean Corpuscular Hemoglobin 26.3 pg (27.0-31.0); Mean Platelet Volume 9.7 fL (7.4-10.4); RBC Distribution Width 15.3 % (11.5-14.5); Red Blood Cell (RBC) Count 3.72 mill/uL (4.20-5.40); White Blood Cell (WBC) Count 9.7 10x3/uL (4.8-10.8)
[2023-09-06 06:59] LABS: Hematocrit 32.3 % (36.0-47.0); Hemoglobin 9.8 g/dL (12.0-16.0); Mean Corpuscular Volume 86.8 fl (78.0-98.0); Platelet Count 383 10x3/uL (130-400)
[2023-09-06 07:11] LABS: Anion Gap 11 mmol/L (10-20); BUN (Urea Nitrogen) 6 mg/dL (9.8-20.1); Calc. Creatinine Clearance 0 mL/min (70-130); Carbon Dioxide 28 mmol/L (23-31); Chloride 110 mmol/L (98-107); Estimated GFR 100; Glucose 90 mg/dL (80-115); Potassium 3.9 mmol/L (3.5-5.1); Sodium 145 mmol/L (136-145)
[2023-09-06] MEDS: Famotidine/PF 20 mg/2ml Vial SLOW IVP SCH ×2 (09:21→21:17)
[2023-09-06] MEDS ORDERED: Bisacodyl 10 MG SUPP PR PRN (17:51)
[2023-09-06] MEDS ORDERED: Polyethylene Glycol 3350 17 GM Packet PER TUBE PRN (17:51)
[2023-09-07] MEDS: Hydrocodone-Acetamin 15 ML UDCUP PO PRN ×3 (04:11→20:36)
[2023-09-07 04:34] LABS: #Basophils 0.1 thou/uL (0.0-0.2); #Eosinphils 0.6 thou/uL (0.0-0.7); #Monocytes 0.6 thou/uL (0.11-0.59); #Neutrophils 5.7 thou/uL (1.40-6.50); %Basophils 1.1 % (0.0-1.0); %Eosinophils 7.9 % (0.0-10.0); %Lymphocytes 11.9 % (21.0-51.0); %Monocytes 7.4 % (0.0-10.0); %Neutrophils 71.6 % (42.0-75.0); Mean Corpuscular HGB CONC 30.3 g/dL (32.0-36.0); Mean Corpuscular Hemoglobin 26.2 pg (27.0-31.0); Mean Corpuscular Volume 86.6 fl (78.0-98.0); Mean Platelet Volume 9.6 fL (7.4-10.4); Platelet Count 386 10x3/uL (130-400); RBC Distribution Width 15.2 % (11.5-14.5); Red Blood Cell (RBC) Count 3.81 mill/uL (4.20-5.40)
[2023-09-07 04:53] LABS: Anion Gap 10 mmol/L (10-20); BUN (Urea Nitrogen) 5 mg/dL (9.8-20.1); Calc. Creatinine Clearance 64 mL/min (70-130); Carbon Dioxide 30 mmol/L (23-31); Chloride 107 mmol/L (98-107); Estimated GFR 102; Potassium 3.8 mmol/L (3.5-5.1); Sodium 143 mmol/L (136-145)
[2023-09-07 04:54] LABS: Glucose 87 mg/dL (80-115)
[2023-09-07] MEDS: Famotidine/PF 20 mg/2ml Vial SLOW IVP SCH ×2 (08:18→20:36)
[2023-09-07] MEDS: Polyethylene Glycol 3350 17 GM Packet PER TUBE SCH (08:24)
[2023-09-07] MEDS: Ondansetron PF 4 MG/2 ML Vial IVP PRN (14:58)
[2023-09-08] MEDS: Hydrocodone-Acetamin 15 ML UDCUP PO PRN ×2 (02:39→11:00)
[2023-09-08 05:27] LABS: #Basophils 0.1 thou/uL (0.0-0.2); #Eosinphils 0.5 thou/uL (0.0-0.7); #Monocytes 0.5 thou/uL (0.11-0.59); #Neutrophils 4.4 thou/uL (1.40-6.50); %Basophils 0.8 % (0.0-1.0); %Eosinophils 8.5 % (0.0-10.0); %Lymphocytes 12.5 % (21.0-51.0); %Monocytes 8.5 % (0.0-10.0); %Neutrophils 69.4 % (42.0-75.0); Hematocrit 31.7 % (36.0-47.0); Hemoglobin 9.6 g/dL (12.0-16.0); Mean Corpuscular HGB CONC 30.3 g/dL (32.0-36.0); Mean Corpuscular Hemoglobin 26.3 pg (27.0-31.0); Mean Corpuscular Volume 86.8 fl (78.0-98.0); Mean Platelet Volume 9.3 fL (7.4-10.4); Platelet Count 349 10x3/uL (130-400); RBC Distribution Width 15.1 % (11.5-14.5); Red Blood Cell (RBC) Count 3.65 mill/uL (4.20-5.40); White Blood Cell (WBC) Count 6.3 10x3/uL (4.8-10.8)
[2023-09-08 05:52] LABS: Anion Gap 12 mmol/L (10-20); BUN (Urea Nitrogen) 6 mg/dL (9.8-20.1); Calc. Creatinine Clearance 60 mL/min (70-130); Calcium 7.8 mg/dL (7.8-10.44); Carbon Dioxide 29 mmol/L (23-31); Chloride 106 mmol/L (98-107); Estimated GFR 100; Glucose 85 mg/dL (80-115); Potassium 3.8 mmol/L (3.5-5.1); Sodium 143 mmol/L (136-145)
[2023-09-08 07:49] VITALS: BP 103/63; TEMP 97.7
[2023-09-08] MEDS: Famotidine/PF 20 mg/2ml Vial SLOW IVP SCH (08:50)
[2023-09-08] MEDS: Polyethylene Glycol 3350 17 GM Packet PER TUBE SCH (08:57)
[2023-09-08 09:38] VITALS: BMI 15.1
== END 2023-09-08 16:28 | disposition home or self-care (01) | DRG 391 ==
LOC: ERS 09:42 → T4-A 15:44 → OBSVTOIN 09-06 15:24
PROVIDERS: ADMIT Hospitalist; ATTEND Hospitalist
DX: K59.00 Constipation, unspecified (principal); E43 Unspecified severe protein-calorie malnutrition; Z68.1 Body mass index [BMI] 19.9 or less, adult; E87.6 Hypokalemia; C10.9 Malignant neoplasm of oropharynx, unspecified; Z88.5 Allergy status to narcotic agent; Z88.0 Allergy status to penicillin; Z51.5 Encounter for palliative care; Z66 Do not resuscitate; Z79.899 Other long term (current) drug therapy; I10 Essential (primary) hypertension; Z98.890 Other specified postprocedural states; Z96.641 Presence of right artificial hip joint; Z87.891 Personal history of nicotine dependence; Z85.3 Personal history of malignant neoplasm of breast
CPT/HCPCS: 70491; 80048; 80053; 85025; 85610; 85730; 96374; 96375; 96376; 97139; G0378; J1642; J2405; J3480; S0028

== ENCOUNTER 2023-10-04 10:15 | Outpatient (CLI) | payer MEDICARE | END 2023-10-04 10:16 | LOC: PET 10:15 | PROVIDERS: ATTEND Internal Medicine Hematology & Oncology | DX: C04.1 Malignant neoplasm of lateral floor of mouth (principal); C34.11 Malignant neoplasm of upper lobe, right bronchus or lung; C76.0 Malignant neoplasm of head, face and neck; J18.1 Lobar pneumonia, unspecified organism; R91.8 Other nonspecific abnormal finding of lung field; Z98.890 Other specified postprocedural states | CPT/HCPCS: 78815; A9552 ==

== ENCOUNTER 2023-10-09 13:52 | Emergency (ER) | payer MEDICARE ==
[2023-10-09 15:06] LABS: #Basophils 0.1 thou/uL (0.0-0.2); #Eosinphils 0.4 thou/uL (0.0-0.7); #Monocytes 0.6 thou/uL (0.11-0.59); #Neutrophils 6.3 thou/uL (1.40-6.50); %Basophils 0.9 % (0.0-1.0); %Eosinophils 4.6 % (0.0-10.0); %Lymphocytes 6.6 % (21.0-51.0); %Monocytes 7.1 % (0.0-10.0); %Neutrophils 80.5 % (42.0-75.0); Hematocrit 38.8 % (36.0-47.0); Hemoglobin 11.7 g/dL (12.0-16.0); Mean Corpuscular HGB CONC 30.2 g/dL (32.0-36.0); Mean Corpuscular Hemoglobin 25.7 pg (27.0-31.0); Mean Corpuscular Volume 85.3 fl (78.0-98.0); Mean Platelet Volume 10.1 fL (7.4-10.4); Platelet Count 519 10x3/uL (130-400); RBC Distribution Width 15.4 % (11.5-14.5); Red Blood Cell (RBC) Count 4.55 mill/uL (4.20-5.40); White Blood Cell (WBC) Count 7.9 10x3/uL (4.8-10.8)
[2023-10-09 15:34] LABS: Troponin I 0.025 ng/mL (< 0.028)
[2023-10-09 15:54] LABS: SARS-CoV-2 NAA Rapid Test Not Detected (NotDetected)
[2023-10-09 16:02] LABS: ALT (SGPT) 8 U/L (8-55); AST (SGOT) 19 U/L (5-34); Albumin 3.8 g/dL (3.4-4.8); Alkaline Phosphatase 84 U/L (40-110); Anion Gap 18 mmol/L (10-20); BUN (Urea Nitrogen) 11 mg/dL (9.8-20.1); Bilirubin, Total 0.4 mg/dL (0.2-1.2); Calc. Creatinine Clearance 0 mL/min (70-130); Calcium 9.7 mg/dL (7.8-10.44); Carbon Dioxide 26 mmol/L (23-31); Chloride 99 mmol/L (98-107); Estimated GFR 95; Globulin 4.3 g/dL (2.4-3.5); Glucose 97 mg/dL (80-115); Lipase Less than 4 U/L (8-78); Potassium 4.3 mmol/L (3.5-5.1); Protein, Total 8.1 g/dL (5.8-8.1); Sodium 139 mmol/L (136-145)
== END 2023-10-09 20:45 | disposition home or self-care (01) ==
LOC: ERS 13:52
DX: J90 Pleural effusion, not elsewhere classified (principal); R53.1 Weakness; Z20.822 Contact with and (suspected) exposure to COVID-19; Z87.891 Personal history of nicotine dependence
CPT/HCPCS: 0240U; 71045; 74177; 80053; 83605; 83690; 84484; 85025; 93005; 36415; Q9967

== ENCOUNTER 2023-12-22 08:26 | Outpatient (CLI) | payer MEDICARE ==
[2023-12-22] MEDS ORDERED: Iopamidol 370 76% 100 ML VIAL ONE (14:50)
== END 2023-12-22 08:27 | disposition home or self-care (01) ==
LOC: CT 08:26
PROVIDERS: ATTEND Internal Medicine Hematology & Oncology
DX: C34.11 Malignant neoplasm of upper lobe, right bronchus or lung (principal); C76.0 Malignant neoplasm of head, face and neck; J98.4 Other disorders of lung; R91.8 Other nonspecific abnormal finding of lung field; Z98.890 Other specified postprocedural states
CPT/HCPCS: 71046; 71260; 82565; Q9967

== ENCOUNTER 2024-01-12 10:15 | Outpatient (CLI) | payer MEDICARE | END 2024-01-12 10:16 | disposition home or self-care (01) | LOC: PET 10:15 | PROVIDERS: ATTEND Internal Medicine Hematology & Oncology | DX: C76.0 Malignant neoplasm of head, face and neck (principal); C04.1 Malignant neoplasm of lateral floor of mouth; M89.58 Osteolysis, other site | CPT/HCPCS: 78815; A9552 ==